=== PATIENT | male | born 1965 | race Two or more races ===

== ENCOUNTER 2024-03-23 10:30 | Day surgery (SDC) | payer BC, SELFPAY ==
[2024-03-20 09:22] VITALS: BMI 25.8
[2024-03-20 09:55] LABS: % Basophils 0.5 % (0-2); % Eosinophils 3.1 % (0-6); % Immature Granulocytes 0.3 % (0-0.5); % Lymphocytes 13.5 % (20.5-51.1); % Monocytes 11.1 % (1.7-9.3); % Neutrophils 71.5 % (42.2-75.2); Absolute Basophils 0.1 10^3/uL (0-0.2); Absolute Eosinophils 0.3 10^3/uL (0-0.7); Absolute Lymphocytes 1.3 10^3/uL (1.2-3.4); Absolute Monocytes 1.1 10^3/uL (0.1-0.6); Absolute Neutrophils 6.9 10^3/uL (1.4-6.5); Hemoglobin 16.5 g/dL (13.0-18.0); Mean Corp Hgb Conc. 34.4 g/dL (33.0-37.0); Mean Corpuscular Hgb 33.9 pg (27.0-31.0); Mean Corpuscular Volume 98.6 fL (80.0-94.0); Mean Platelet Volume 11.1 fL (7.4-10.4); Nucleated Red Blood Cells % 0 % (-); Platelet Count 229 10^3/uL (130-400); Red Blood Cell Count 4.87 10^6/uL (4.70-6.10); Red Cell Dist. Width 12.4 % (11.5-14.5); White Blood Cell Count 9.6 10^3/uL (4.8-10.8)
[2024-03-20 10:59] LABS: ALT (SGPT) 18 U/L (0-50); AST (SGOT) 32 U/L (17-59); Alkaline Phosphatase 91 U/L (38-126); Blood Urea Nitrogen 22 mg/dl (9-20); Carbon Dioxide 27 mmol/L (22-30); Chloride 104 mmol/L (98-107); Estimated Creatinine Clearance 60 ml/min; Glucose 106 mg/dl (70-99); Potassium 4.8 mmol/L (3.5-5.1); Sodium 141 mmol/L (135-145); Total Bilirubin 1.1 mg/dl (0.2-1.3); Total Protein 7.5 g/dl (6.3-8.2); eGFR > 60.00
[2024-03-23] VITALS (9 sets, daily range): BP systolic 126–156; BP diastolic 85–99; BMI 25.8
--- NOTE | 2024-03-23 10:37 | W.ICD.CONTRA ---
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
-
History of NE?: No
LV Function
Left ventricular function study result?: Ejection Fraction </= 35%
ACEI/ARB/ARNI
Patient already on ACEI/ARB/ARNI: Yes
Beta-Mindy
Patient already on Beta Mindy: Yes
[2024-03-23 12:51] LABS: COVID-19 Antigen Negative (Negative)
--- NOTE | 2024-03-23 14:55 | ITS.CL.ICD ---
Barrel Finisher - ICD
Implantable Cardioverter Defibrillator
Procedure Report:
Date of Procedure: 03/23/2024
Patient : 1965
Procedures: BiV ICD implantation
Indication: Primary prevention ICD with wide QRS 160 ms left bundle branch block, ejection fraction less than 30%, class II�3 heart failure
�
Implants:
Pulse Generator: GutCheck; Model# CD HFA 500 Q; Serial#�[id number]
Atrial Lead: Stauffer: Model# 1944; Serial# [id number]
Right Ventricular Lead: GutCheck; Model# LDA 2 10Q; Serial# [id number]
Left Ventricular Lead: Stepsss; Model# 4798; Serial# [id number]
�
Technique: The patient was prepped and draped in the usual fashion. Local anesthetic was applied to the left prepectoral subcutaneous tissue. A 4 inch incision was made. The left axillary vein was accessed��without difficulty. A subcutaneous pocket
was CREATED. Hemostasis was excellent. A right heart catheterization was performed. The leads were introduced with hemostatic peel away introducer sheaths. The right ventricular lead was placed at the right ventricular apical septum. The atrial lead
was placed in the right atrial appendage. The coronary sinus was accessed with the aid of the Attain system. The left ventricular lead was placed in the high lateral coronary sinus branch. 10 volt pacing did not capture the diaphragm. The leads were
secured to the pectoralis muscle and fascia. The leads were appropriately attached to the device. The pocket was irrigated with antibiotic solution. The device and leads were placed in the pocket and the device was secured to pectoralis muscle and
facia. The incision was closed with absorbable sutures. The estimated blood loss was minimal. There were no complications. Device based testing was performed as described below. IV contrast total: 10 cc.
�
System Analysis:
RA lead: P: 4.2 mV; Threshold: 1.25 V @ 0.5 ms; Impedance: 380 ohms.
RV lead: R: 11.7 mV; Threshold: 1.0 V @ 0.5 ms; Impedance: 530 ohms.
LV lead: R: 18 mV; Threshold: 1.0 V @ 0.5 ms; Impedance: 640 ohms.
�
Final Programming: Tachy: VT/VF:188, monitor 150; Rom: DDD 50-1 20. The patient had short periods of pacemaker mediated tachycardia so we extended the patient's PVARP and provided 3 times safety margin on atrial lead capture although in DDD mode
lower rate 50 he should not paced in the atrium frequently
�
Conclusion: Uncomplicated Biventricular ICD implant and testing.
Recommendation: Routine post BiV ICD care.
�
cc: Dr. Mirtha Metcalf
�
[2024-03-23] MEDS: COREG 3.125 MG PO (15:51)
[2024-03-23] MEDS: TYLENOL 650 MG PO ×2 (15:53→21:43)
--- NOTE | 2024-03-23 16:52 | CM ---
spoke to pt in room, he is prev indep, lives alone i a 2 story home with 3 steps to enter. he denies any dme's or dc planning needs. plan is for dc to home when medically stable.
--- NOTE | 2024-03-23 19:47 | PTCARENOTE ---
Pt received post ICD insertion in left anterior chest. Dressing dry and intact, no sign of bleeding or hematoma. Pt instructed on activity guidelines and restrictions. Chest xray done in dept. Telemetry shows vent. paced rhythm.
[2024-03-23] MEDS: ALDACTONE 25 MG PO (21:43)
[2024-03-23] MEDS: ANCEF 5 IV (21:44)
[2024-03-23] MEDS: COREG 6.25 MG PO (21:44)
--- NOTE | 2024-03-23 23:37 | PTCARENOTE ---
received patient at the change of shift. AAOx3. oob independently. steady on his feet. denies any lightheadedness/dizziness. oral care per patient. PPM site, left chest, intact. Left arm immobilizer intact. reviewed activity restrictions and patient
verbalized understanding. AV/RN RELIEF CHARGE paced 50s. bp stable. patient complaining of some mild left shoulder stiffness-Tylenol given, see mar. call boyle within reach. calls appropriately.
[2024-03-24 04:46] VITALS: BP 140/79
[2024-03-24] MEDS: ANCEF 5 IV (04:46)
[2024-03-24 05:19] LABS: Hematocrit 41.9 % (39.0-52.0); Hemoglobin 14.7 g/dL (13.0-18.0); Mean Corp Hgb Conc. 35.1 g/dL (33.0-37.0); Mean Corpuscular Hgb 33.1 pg (27.0-31.0); Mean Corpuscular Volume 94.4 fL (80.0-94.0); Mean Platelet Volume 11.7 fL (7.4-10.4); Platelet Count 178 10^3/uL (130-400); Red Blood Cell Count 4.44 10^6/uL (4.70-6.10); Red Cell Dist. Width 12.3 % (11.5-14.5); White Blood Cell Count 13.2 10^3/uL (4.8-10.8)
[2024-03-24 05:38] LABS: Blood Urea Nitrogen 17 mg/dl (9-20); Calcium 9.5 mg/dl (8.4-10.2); Carbon Dioxide 23 mmol/L (22-30); Chloride 105 mmol/L (98-107); Estimated Creatinine Clearance 66 ml/min; Glucose 97 mg/dl (70-99); Potassium 4.7 mmol/L (3.5-5.1); Sodium 141 mmol/L (135-145); eGFR > 60.00
[2024-03-24 07:40] VITALS: BP 140/96
[2024-03-24 07:42] VITALS: BMI 25.0
[2024-03-24] MEDS: COREG 3.125 MG PO (08:00)
[2024-03-24] MEDS: DIOVAN 40 MG PO (08:00)
[2024-03-24] MEDS: TYLENOL 650 MG PO (08:01)
--- NOTE | 2024-03-24 09:07 | W.PN.CARDCBS ---
Addendum entered and electronically signed by Colt Mayfield MD 03/24/24 09:18:
patient seen and examined
agree with SUPERVISOR TUNNEL HEADING note and assessment
agree with SUPERVISOR TUNNEL HEADING plan
exam:
site cdi
tele reviewed
interrogation with stable leads
cxr reviewed
remainder per SUPERVISOR TUNNEL HEADING note
Impression:
NICMP EF 25-30%
post BiV ICD 03/23/24
HTN
HLD
LBBB
DDD
Active Smoker
Plan:
post device site stable
tele AsVpaced
CXR no PTX
HF continue carvedilol, valsartan, and spironolactone
Activity restrictions reviewed
smoking cessation reinforced
inc check 1 week DCA
continue cardiac care with Dr. Metcalf
home today
Original Note:
Today's Communication / Plan
-
post BiV ICD
stable for d/c home
Impression / Plan
-
PCP: Narinder Barrow MD
CDY: Jered Metcalf MD
Impression:
NICMP EF 25-30%
post BiV ICD 03/23/24
HTN
HLD
LBBB
DDD
Active Smoker
Plan:
post device site stable
tele AsVpaced
CXR no PTX
HF continue carvedilol, valsartan, and spironolactone
Activity restrictions reviewed
smoking cessation reinforced
inc check 1 week DCA
continue cardiac care with Dr. Metcalf
home today
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
Subjective
Date of Service: March 24, 2024
denies cp, sob, mild inc pain relief with Tylenol
Objective
Labs:
03/24/24 04:52
03/24/24 04:52
Labs
Hgb 14.7 g/dL (13.0-18.0) 03/24/24 04:52
Hct 41.9 % (39.0-52.0) 03/24/24 04:52
Plt Count 178 10^3/uL (130-400) D 03/24/24 04:52
Sodium 141 mmol/L (135-145) 03/24/24 04:52
Potassium 4.7 mmol/L (3.5-5.1) 03/24/24 04:52
BUN 17 mg/dl (9-20) 03/24/24 04:52
Creatinine 1.1 mg/dL (0.7-1.3) 03/24/24 04:52
Glucose 97 mg/dl (70-99) 03/24/24 04:52
Vital Signs and I&O:
Vital Signs
Temp Pulse Resp BP Pulse Ox
98.2 F 55 18 140/96 97
03/24/24 07:42 03/24/24 07:45 03/24/24 07:42 03/24/24 07:40 03/24/24 08:04
Vital Signs
Temp Pulse Resp BP Pulse Ox
98.2 F 55 18 140/96 97
03/24/24 07:42 03/24/24 07:45 03/24/24 07:42 03/24/24 07:40 03/24/24 08:04
Intake & Output
03/22/24 03/23/24 03/24/24 03/25/24
06:59 06:59 06:59 06:59
Intake Total 1350 / 1350
Output Total 475 / 475
Balance 875 / 875
Physical Exam
Physical Exam
NAD< AOX3
S1, S2, RRR
CTAB, non labored, no wheeze
SNTND Bsx4
L CW dressing c/d/i no HT
[2024-03-24] MEDS: PREVNAR 20 0.5 ML IM (09:42)
--- NOTE | 2024-03-24 10:26 | W.DS.TRANS ---
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
-
Discharge Instructions:
Sleep Apnea Risk Intermediate
Discharge Diagnosis/Procedures BiV ICD upgrade
Diet Low Cholesterol,2 Gram Sodium,Restrict fluids to
48 oz
Driving Restrictions No driving for 1 week
Bathing Restrictions OK to Shower
Specialty Instructions Weigh Daily
Instructions:
Stand-Alone Forms: DC Inst - Implanted Device
Changes to Home Medications: No
Discharge Medications:
DC Medications w/original date entered in [facility]
acetaminophen 500 mg tablet 1,000 mg PO Q6H PRN pain 03/15/24
carvedilol 3.125 mg tablet 3.125 mg PO DAILY 03/15/24
carvedilol 3.125 mg tablet 6.25 mg PO HS 03/15/24
diphenhydramine HCl 25 mg capsule (Benadryl) 50 mg PO HS PRN sleep 03/15/24
spironolactone 25 mg tablet 25 mg PO HS 03/15/24
valsartan 80 mg tablet 40 mg PO DAILY 03/15/24
carvedilol 3.125 mg tablet 3.125 mg PO NOON 03/23/24
Home Medication Changes
Pending Results: No
--- NOTE | 2024-03-24 12:38 | PTCARENOTE ---
Pt seen by . Pt medicated for wound discomfort with good effect. Telemetry and IV device removed. discharge instructions reviewed with pt and his sister in law regarding activity and driving restrictions, wound care, pain management, CHF
guidelines, reporting cares and concerns and follow up appt's. Excellent understanding verbalized. Pt escorted out via wheelchair and discharged to home.
== END 2024-03-24 11:45 | disposition home or self-care (01) ==
LOC: CATH 10:30
PROVIDERS: Anesthesiology; Nurse Practitioner Adult Health; ATTENDING PHYSICIAN Internal Medicine Cardiovascular Disease; FAMILY PHYSICIAN Family Medicine; OTHER PHYSICIAN Internal Medicine Cardiovascular Disease
DX: I11.0 Hypertensive heart disease with heart failure (principal); I42.0 Dilated cardiomyopathy; I44.7 Left bundle-branch block, unspecified; I50.9 Heart failure, unspecified; R06.02 Shortness of breath; R42 Dizziness and giddiness; E78.5 Hyperlipidemia, unspecified; M41.9 Scoliosis, unspecified; Z72.0 Tobacco use; Z79.899 Other long term (current) drug therapy
CPT/HCPCS: 33249; 33225; 36415; 71045; 80048; 80053; 83735; 85025; 85027; 87811; 93005; C1730; C1769; C1777; C1882; C1887; C1892; C1898; C1900; Q9967